=== PATIENT | female | born 1980 | race Caucasian/White ===

== ENCOUNTER 2016-05-02 17:52 | Emergency (ER) | payer SELFPAY ==
[~2016-05-02] VITALS: Ht 172.7 cm; Wt 54.4 kg
[~2016-05-02 17:52] MED LIST: AMIT75TA13 PO; DICL30AD3 PO; OMEP40CA PO; ONDA4TAB5 PO; PROM25TA15 PO
[2016-05-02] MEDS ORDERED: PROMETHAZINE HCL 25 MG/1 ML VIAL IM ONE (18:15)
[2016-05-02] MEDS ORDERED: PROMETHAZINE HCL 25 MG/1 ML VIAL ONE (18:16)
--- NOTE | 2016-05-02 18:16 | NUR ---
mse completed, pt rec'd phenergan im, pt then d/c'd home, aci/rx x2 given. pt ambulated w/o diff/took all belongings.
[2016-05-02 18:20] VITALS: BP 138/88
== END 2016-05-02 18:20 | disposition home or self-care (01) ==
LOC: ER 17:52
DX: G43.909 Migraine, unspecified, not intractable, without status migrainosus (principal); J45.909 Unspecified asthma, uncomplicated; F10.20 Alcohol dependence, uncomplicated; F17.200 Nicotine dependence, unspecified, uncomplicated; Z88.6 Allergy status to analgesic agent; Z88.8 Allergy status to other drugs, medicaments and biological substances
CPT/HCPCS: A4663; J2550

== ENCOUNTER 2016-05-09 09:40 | Emergency (ER) | payer SELFPAY ==
[~2016-05-09] VITALS: Ht 172.7 cm; Wt 56.7 kg
--- NOTE | 2016-05-09 10:05 | NUR ---
Patient discharged to home in stable conditon. Written and verbal after care instructions given. Patient verbalizes understanding of instructions.
== END 2016-05-09 10:06 | disposition home or self-care (01) ==
LOC: ER 09:40
DX: Z76.0 Encounter for issue of repeat prescription (principal); G43.909 Migraine, unspecified, not intractable, without status migrainosus; J45.909 Unspecified asthma, uncomplicated; F10.20 Alcohol dependence, uncomplicated; F17.200 Nicotine dependence, unspecified, uncomplicated; Z88.6 Allergy status to analgesic agent; Z88.8 Allergy status to other drugs, medicaments and biological substances
CPT/HCPCS: 99283; A4663

== ENCOUNTER 2016-06-06 11:59 | Emergency (ER) | payer SELFPAY ==
[~2016-06-06] VITALS: Ht 172.7 cm; Wt 54.4 kg
[2016-06-06] MEDS ORDERED: PROMETHAZINE HCL 25 MG/1 ML VIAL IM ONE (12:15)
--- NOTE | 2016-06-06 12:25 | NUR ---
Patient discharged to home in stable conditon. Written and verbal after care instructions given to patient Patient verbalizes understanding of instructions.
[2016-06-06] MEDS ORDERED: PROMETHAZINE HCL 25 MG/1 ML VIAL ONE (12:26)
== END 2016-06-06 12:26 | disposition home or self-care (01) ==
LOC: ER 12:03
DX: G43.909 Migraine, unspecified, not intractable, without status migrainosus (principal); J45.909 Unspecified asthma, uncomplicated; F10.20 Alcohol dependence, uncomplicated; F17.200 Nicotine dependence, unspecified, uncomplicated; Z88.6 Allergy status to analgesic agent; Z88.8 Allergy status to other drugs, medicaments and biological substances
CPT/HCPCS: A4663; J2550

== ENCOUNTER 2016-06-29 21:27 | Emergency (ER) | payer SELFPAY ==
[~2016-06-29] VITALS: Ht 172.7 cm; Wt 54.4 kg
[~2016-06-29 21:27] MED LIST changes: -AMIT75TA13 PO
--- NOTE | 2016-06-29 22:20 | NUR ---
Patient discharged to home in stable conditon. Written and verbal after care instructions given. Patient verbalizes understanding of instructions. Walked out of ER with steadyy gait with no dsitress noted
== END 2016-06-29 22:21 | disposition home or self-care (01) ==
LOC: ER 21:27
DX: Z76.0 Encounter for issue of repeat prescription (principal); G43.909 Migraine, unspecified, not intractable, without status migrainosus; J45.909 Unspecified asthma, uncomplicated; F10.20 Alcohol dependence, uncomplicated; F17.200 Nicotine dependence, unspecified, uncomplicated; Z88.6 Allergy status to analgesic agent; Z88.8 Allergy status to other drugs, medicaments and biological substances
CPT/HCPCS: A4663

== ENCOUNTER 2016-07-06 20:31 | Emergency (ER) | payer SELFPAY ==
[~2016-07-06] VITALS: Ht 172.7 cm; Wt 54.4 kg
[2016-07-06] MEDS ORDERED: PROMETHAZINE HCL 25 MG/1 ML VIAL IM ONE (21:00)
[2016-07-06] MEDS ORDERED: HYDROMORPHONE HCL 2 MG TABLET PO ONE (21:00)
[2016-07-06] MEDS ORDERED: PROMETHAZINE HCL 25 MG/1 ML VIAL ONE (21:04)
[2016-07-06] MEDS ORDERED: HYDROMORPHONE HCL 2 MG TABLET ONE (21:04)
[2016-07-06 21:08] VITALS: BP 142/95
== END 2016-07-06 21:08 | disposition home or self-care (01) ==
LOC: ER 20:31
DX: K08.89 Other specified disorders of teeth and supporting structures (principal); G89.29 Other chronic pain; J45.909 Unspecified asthma, uncomplicated; F10.20 Alcohol dependence, uncomplicated; F17.200 Nicotine dependence, unspecified, uncomplicated; Z88.6 Allergy status to analgesic agent; Z88.8 Allergy status to other drugs, medicaments and biological substances
CPT/HCPCS: 96372; 99283; 99406; A4663; J2550

== ENCOUNTER 2016-08-24 15:15 | Emergency (ER) | payer SELFPAY ==
[~2016-08-24] VITALS: Ht 165.1 cm; Wt 56.7 kg
[~2016-08-24 15:15] MED LIST changes: -DICL30AD3 PO; +HYDR4TAB4 PO
[2016-08-24] MEDS: BUPIVACAINE PF 0.5% 30 ML VIAL TP ONE (15:30)
[2016-08-24] MEDS: PENICILLIN V POTASSIUM 500 MG TABLET PO ONE (15:30)
[2016-08-24] MEDS ORDERED: PENICILLIN V POTASSIUM 500 MG TABLET ONE (15:41)
[2016-08-24] MEDS ORDERED: BUPIVACAINE PF 0.5% 30 ML VIAL ONE (15:41)
--- NOTE | 2016-08-24 15:51 | NUR ---
Patient discharged to home in stable conditon. Written and verbal after care instructions given. Patient verbalizes understanding of instructions.
== END 2016-08-24 15:54 | disposition home or self-care (01) ==
LOC: ER 15:16
DX: K04.7 Periapical abscess without sinus (principal); G43.909 Migraine, unspecified, not intractable, without status migrainosus; J45.909 Unspecified asthma, uncomplicated; F10.20 Alcohol dependence, uncomplicated; F17.200 Nicotine dependence, unspecified, uncomplicated; Z88.6 Allergy status to analgesic agent; Z88.8 Allergy status to other drugs, medicaments and biological substances
CPT/HCPCS: A4663; J3490

== ENCOUNTER → 2016-09-21 | Emergency (ER) | payer SELFPAY ==
--- NOTE | 2016-09-21 05:02 | NUR ---
PATIENT CALLED SEVERAL TIMES TO BE TRAIGE. PATIENT WAS NOT PRESENT. PATIENT WAS NOT SEEN OR TRIAGE
== END | disposition home or self-care (01) ==
LOC: ER 04:31
DX: R11.0 Nausea (principal); Z53.21 Procedure and treatment not carried out due to patient leaving prior to being seen by health care provider; J45.909 Unspecified asthma, uncomplicated; G43.909 Migraine, unspecified, not intractable, without status migrainosus; Z88.6 Allergy status to analgesic agent; Z88.8 Allergy status to other drugs, medicaments and biological substances

== ENCOUNTER 2017-03-17 11:11 | Emergency (ER) | payer SELFPAY ==
[~2017-03-17] VITALS: Ht 172.7 cm; Wt 56.7 kg
--- NOTE | 2017-03-17 11:51 | NUR ---
Dr. Razo here to see pt at the bedside for MSE.
--- NOTE | 2017-03-17 12:14 | NUR ---
Patient eloped from facility. ER physician notified.
== END 2017-03-17 12:15 | disposition left against medical advice (07) ==
LOC: ER 11:11
DX: Z76.0 Encounter for issue of repeat prescription (principal); G89.29 Other chronic pain; K08.89 Other specified disorders of teeth and supporting structures; G43.909 Migraine, unspecified, not intractable, without status migrainosus; R11.0 Nausea; J45.909 Unspecified asthma, uncomplicated; F17.200 Nicotine dependence, unspecified, uncomplicated; Z88.6 Allergy status to analgesic agent; Z88.8 Allergy status to other drugs, medicaments and biological substances
CPT/HCPCS: A4663

== ENCOUNTER 2017-04-25 19:33 | Emergency (ER) | payer SELFPAY ==
[~2017-04-25] VITALS: Ht 172.7 cm; Wt 56.7 kg
--- NOTE | 2017-04-25 20:10 | NUR ---
Pt ambulated to room with slow shuffled steady gait. Pt c/o severe migraine with N/V. Pt sts she is under a lot of stress in her personal life. Dr. Siddiqi at bedside for MSE.
[2017-04-25] MEDS ORDERED: ONDANSETRON 4 MG/2 ML VIAL IM ONE (20:15)
[2017-04-25] MEDS ORDERED: diphenhydrAMINE 50 MG/1 ML VIAL IV ONE (20:15)
[2017-04-25] MEDS ORDERED: HYDROMORPHONE 1 MG/1 ML DISP.SYRIN IM ONE (20:15)
[2017-04-25] MEDS ORDERED: ONDANSETRON 4 MG/2 ML VIAL ONE (20:23)
[2017-04-25] MEDS ORDERED: diphenhydrAMINE 50 MG/1 ML VIAL ONE (20:23)
[2017-04-25] MEDS ORDERED: HYDROMORPHONE 4 MG/1 ML DISP.SYRIN ONE (20:24)
--- NOTE | 2017-04-25 20:40 | NUR ---
Pt medicated for discomfort, will monitor for effects of medication. Pt resting in position of comfort for self.
--- NOTE | 2017-04-25 20:51 | NUR ---
Pt sts she is feeling better. Pt stable for discharge per MD. Pt given ACI. Pt verbalized understanding of dc instructions. Pt ambulated out of ER with steady gait to wr to wait for ride home.
[2017-04-25 20:53] VITALS: BP 145/75
== END 2017-04-25 20:55 | disposition home or self-care (01) ==
LOC: ER 19:35
DX: G43.909 Migraine, unspecified, not intractable, without status migrainosus (principal); J45.909 Unspecified asthma, uncomplicated; F17.210 Nicotine dependence, cigarettes, uncomplicated; Z88.5 Allergy status to narcotic agent; Z88.8 Allergy status to other drugs, medicaments and biological substances; Z79.891 Long term (current) use of opiate analgesic; Z79.899 Other long term (current) drug therapy
CPT/HCPCS: A4663; J1170; J1200; J2405

== ENCOUNTER 2017-05-16 12:58 | Emergency (ER) | payer SELFPAY ==
[~2017-05-16] VITALS: Ht 172.7 cm; Wt 54.4 kg
[2017-05-16] MEDS ORDERED: ONDANSETRON 4 MG/2 ML VIAL ONE (13:57)
[2017-05-16] MEDS ORDERED: ONDANSETRON 4 MG/2 ML VIAL IM ONE (14:00)
--- NOTE | 2017-05-16 14:06 | NUR ---
PATIENT WAS SEEN BY .. MEDICATION GIVEN ORDERED. DC, RX AND FOLLOW UP INSTRUCTIONS GIVEN AND EXPLAINED TO PATIENT WHO STATES SHE UNDERSTANDS ALL INSTRUCTIONS. DIALUDID (PRESCRIPTION) DOSE VERIFIED WITH DR RUIZ. PATIENT INSTRUCTED ON ALL DILAUDID PRECAUTIONS, DANGERS, RISKS OF ADDICTION, IMPAIRED DRIVING AND DUI RISKS, DRUG INERACTIONS AND ATYPICAL DOSAGE GUIDELINES AND INFORMATION. PATIENT STATES SHE "TOTALLY UNDERSTANDS".
== END 2017-05-16 14:13 | disposition home or self-care (01) ==
LOC: ER 12:58
DX: G43.909 Migraine, unspecified, not intractable, without status migrainosus (principal); J45.909 Unspecified asthma, uncomplicated; F17.210 Nicotine dependence, cigarettes, uncomplicated; Z88.5 Allergy status to narcotic agent; Z79.891 Long term (current) use of opiate analgesic; Z79.899 Other long term (current) drug therapy
CPT/HCPCS: A4663; J2405

== ENCOUNTER 2017-06-13 17:52 | Emergency (ER) | payer SELFPAY ==
--- NOTE | 2017-06-13 18:37 | NUR ---
[facility], CALLED 3 TIMES, NO ANSWER
== END 2017-06-13 18:38 | disposition left against medical advice (07) ==
LOC: ER 17:53
DX: Z53.21 Procedure and treatment not carried out due to patient leaving prior to being seen by health care provider (principal)

== ENCOUNTER 2018-04-05 19:57 | Emergency (ER) | payer SELFPAY ==
[~2018-04-05] VITALS: Ht 172.7 cm; Wt 56.7 kg
--- NOTE | 2018-04-05 20:49 | NUR ---
Dr. Siddiqi at bedside for MSE.
[2018-04-05] MEDS ORDERED: ONDANSETRON 4 MG/2 ML VIAL IV ONE (21:00)
[2018-04-05] MEDS ORDERED: HYDROMORPHONE 1 MG/1 ML DISP.SYRIN IV ONE (21:00)
[2018-04-05] MEDS ORDERED: IV NORMAL SALINE 1000 ML BAG IV ONE (21:00)
[2018-04-05] MEDS ORDERED: ONDANSETRON 4 MG/2 ML VIAL ONE (21:04)
[2018-04-05] MEDS ORDERED: HYDROMORPHONE 2 MG/1 ML DISP.SYRIN ONE (21:04)
--- NOTE | 2018-04-05 21:40 | NUR ---
Pt states she is feeling better, pain and nausea is gone.
--- NOTE | 2018-04-05 22:00 | NUR ---
Patient discharged to home in stable conditon. Written and verbal after care instructions given. Patient verbalizes understanding of instructions. Patient ambulated out of ER with steady gait, no acute signs of distress, VSS, all belongings taken, IV site discontinued.
[2018-04-05 22:01] VITALS: BP 112/50
== END 2018-04-05 22:01 | disposition home or self-care (01) ==
LOC: ER 19:57
DX: G43.909 Migraine, unspecified, not intractable, without status migrainosus (principal); J45.909 Unspecified asthma, uncomplicated; F17.200 Nicotine dependence, unspecified, uncomplicated; Z88.5 Allergy status to narcotic agent; Z88.8 Allergy status to other drugs, medicaments and biological substances; Z79.891 Long term (current) use of opiate analgesic; Z79.899 Other long term (current) drug therapy
CPT/HCPCS: 96361; 96374; 96375; 99283; J1170; J2405; A4663; J7030

== ENCOUNTER 2018-04-17 20:44 | Emergency (ER) | payer SELFPAY ==
[~2018-04-17] VITALS: Ht 172.7 cm; Wt 56.7 kg
--- NOTE | 2018-04-17 21:00 | NUR ---
Dr. Siddiqi at bedside for MSE.
[2018-04-17] MEDS ORDERED: HYDROMORPHONE 1 MG/1 ML DISP.SYRIN IM ONE (21:15)
[2018-04-17] MEDS ORDERED: ONDANSETRON 4 MG/2 ML VIAL IM ONE (21:15)
[2018-04-17] MEDS ORDERED: ONDANSETRON 4 MG/2 ML VIAL ONE (21:19)
[2018-04-17] MEDS ORDERED: HYDROMORPHONE 2 MG/1 ML DISP.SYRIN ONE (21:19)
--- NOTE | 2018-04-17 21:46 | NUR ---
Pt states feeling better. Patient discharged to home in stable conditon. Written and verbal after care instructions given. Patient verbalizes understanding of instructions. Patient ambulated out of ER with steady gait, no acute signs of distress, VSS, all belongings taken.
[2018-04-17 21:47] VITALS: BP 143/91
== END 2018-04-17 21:47 | disposition home or self-care (01) ==
LOC: ER 20:46
DX: G43.909 Migraine, unspecified, not intractable, without status migrainosus (principal); K08.89 Other specified disorders of teeth and supporting structures; J45.909 Unspecified asthma, uncomplicated; F17.200 Nicotine dependence, unspecified, uncomplicated; Z88.5 Allergy status to narcotic agent; Z88.8 Allergy status to other drugs, medicaments and biological substances; Z79.899 Other long term (current) drug therapy
CPT/HCPCS: 96372 ×2; 99283; J1170; J2405; A4663